=== PATIENT | female | born 1945 | race Caucasian/White ===

== ENCOUNTER → 2016-10-09 | Outpatient (CLI) | payer OTHER | LOC: BRMIMAGING 10:40 | DX: Z12.31 Encounter for screening mammogram for malignant neoplasm of breast (principal); Z80.3 Family history of malignant neoplasm of breast | CPT/HCPCS: G0202 ==

== ENCOUNTER → 2016-11-25 | Outpatient (CLI) | payer OTHER | LOC: BRMIMAGING 13:35 | PROVIDERS: ATTEND Family Medicine | DX: R10.11 Right upper quadrant pain (principal); Z90.49 Acquired absence of other specified parts of digestive tract | CPT/HCPCS: 76700-PO ==

== ENCOUNTER 2017-03-19 15:04 | Emergency (ER) | payer OTHER ==
[2017-03-19 15:21] VITALS: RESP 20
[2017-03-19] MEDS ORDERED: KETOROLAC 30 MG/1 ML SDV ONE (15:34)
[2017-03-19] MEDS ORDERED: KETOROLAC 30 MG/1 ML SDV IM ONE (15:35)
--- NOTE | 2017-03-19 15:35 | EDPHY ---
H & P Time Seen by Provider: 03/19/17 15:10 HPI/ROS: HPI Fall, left ankle pain, tailbone pain. 69-year-old female by private vehicle with her . This patient reports that she was working in her [employer] garden 1 week ago. She was moving some rocks when she lost her balance and fell and landed on her coccyx area. She reports that for the last week the pain has been persistent to her coccyx and sacral area as well as her left ankle. She did not hit her head. No neck pain. There was no loss of consciousness. No other complaints. ROS: Constitutional: No fever, no chills. No weakness. Eyes: No discharge. No changes in vision. ENT: No sore throat. No nasal congestion or rhinorrhea. Respiratory: No cough. No shortness of breath. Cardiac: No chest pain, no palpitations. Gastrointestinal: No abdominal pain, no vomiting, no diarrhea. Genitourinary: No hematuria. No dysuria or increased frequency with urination. Musculoskeletal: As above. No neck pain. Left ankle pain. No other extremity pain. Skin: No rashes. Bruise to left hip. Neurological: No headache. No focal weakness or altered sensation. Past medical history: Parkinson's, hysterectomy, cholecystectomy, right shoulder surgery. Social history: Here with her . Nonsmoker. No alcohol. Physical Exam: General Appearance: Alert, no distress. This patient is responding to questions appropriately and in full sentences. This patient appears well- hydrated and well-nourished. Head: Normocephalic atraumatic. Face: Facial bones are stable on palpation. Eyes: Pupils equal and round and reactive to light, no pallor or injection. No lid erythema or edema. ENT, Mouth: Mucous membranes moist. Dentition is intact. No malocclusion of the jaw. No tongue lacerations or abrasions. Pharynx is clear. The bilateral nasal canals are clear. No septal hematoma. Respiratory: There are no retractions, lungs are clear to auscultation with good air movement bilaterally. Chest wall is stable to AP and lateral palpation. Cardiovascular: Regular rate and rhythm. No murmur. Gastrointestinal: Abdomen is soft and nontender, no masses, bowel sounds normal. Neurological: Motor sensory function is intact. Cranial nerves are normal. Cerebellar function intact. Skin: Warm and dry, no rashes. No lacerations, abrasions. She does have a contusion over the greater trochanter of the left hip. This is nontender on palpation. No pain on axial loading of the left hip or ranging of the left hip. Musculoskeletal: Neck is supple and nontender. The trachea is midline. No midline cervical, thoracic, lumbar or sacral tenderness on palpation. No flank tenderness on palpation. She has tenderness on palpation without deformity or crepitus over the coccyx area and the distal left sacral area. No bony deformity noted. No ecchymosis noted. No erythema, warmth, edema or swelling associated. Extremities are symmetrical, full range of motion. All joints in the bilateral upper and bilateral lower extremities range without pain or impingement. No tenderness on palpation of the long bones in the bilateral upper and bilateral lower extremities. Psychiatric: No agitation. No depression. Database: EKG: Imaging: Lumbar sacral x-ray series: Negative for acute fracture, subluxation, dislocation. Interpreted by me. Coccyx x-ray series: Negative for acute fracture, subluxation, dislocation. Interpreted by me. Left ankle x-ray series: Negative for acute fracture, subluxation, dislocation. Interpreted by me. Procedures: Emergency department course: Past medical history vital signs reviewed. She has a normal creatinine from January 09 of this year. No contraindications to NSAIDs. She is declining narcotic pain medications. She endorses Toradol. She was given 60 mg of IM Toradol and sent for x-rays. 4:25 p.m., patient re-evaluated. She is much more comfortable after the above Toradol was given. Results of her x-rays were discussed with her and her . She does not have a problem weight-bearing on the left ankle. I discussed CT imaging. Plan for now will be to discharge her to home. I will give her a prescription for 7 Vicodin to be taken at night with stool softeners. She and her have been instructed that her pain is not improving in the next 2-3 days she is to return here for CT imaging of her lumbar sacral spine and coccyx. Return to emergency department precautions were thoroughly reviewed with them. They have a doughnut cushion at home which she will use for her coccyx contusion. All of their questions were answered. The patient was discharged in good condition. Differential Diagnosis: The differential diagnosis on this patient includes but is not limited to left ankle sprain, left hip contusion, coccyx fracture. This represents a partial list of diagnoses considered. These considerations are based on history, physical exam, past history, reassessment and diagnostic testing. Smoking Status: Never smoked Constitutional: Initial Vital Signs Temperature (C) 37.1 C 03/19/17 15:17 Heart Rate 96 03/19/17 15:17 Respiratory Rate 20 03/19/17 15:17 Blood Pressure 123/77 H 03/19/17 15:17 O2 Sat (%) 95 03/19/17 15:17 O2 Delivery Mode Room Air Allergies/Adverse Reactions: metronidazole [From Flagyl] Allergy (Severe, Verified 03/19/17 15:16) Anaphylaxis Metronidazole HCl [From Flagyl] Allergy (Severe, Verified 03/19/17 15:16) Anaphylaxis cephalexin monohydrate [From Keflex] Allergy (Mild, Verified 03/19/17 15:16) Rash Home Medications: Medication Instructions Recorded Esomeprazole Magnesium [Nexium] 40 mg PO 01/16/13 LEVOTHYROXINE SODIUM [Tirosint 25 mcg PO 01/16/13 25mcg] Lovastatin 20 mg PO 01/16/13 Carbidopa-Levodopa 25-100 Tab 03/21/14 Hydrochlorothiazide 04/11/15 Pramipexole ER 04/11/15 Docusate Sodium [Colace 100 MG (*)] 100 mg PO TID #20 cap 03/19/17 Hydrocodone/APAP 5/325 [[place] 1 - 2 tab PO Q4-6PRN PRN #10 tab 03/19/17 5/325 (*)] Medical Decision Making - Diagnostics Imaging Results: Imaging Impressions Ankle X-Ray 03/19/17 15:29 Impression: No source for pain identified. 2. Lumbar Spine, 2 views History: Fall 1 week ago, increasing pain Comparison: None Findings: There is a moderate lumbar levoscoliosis. Right upper quadrant surgical clips are consistent with previous cholecystectomy. No compression abnormalities are identified. There is degenerative disk disease between T12 and L2 with mild degenerative retrolistheses present at both those levels. Fecal material throughout the colon is consistent with severe constipation. Impression: 1. Scoliosis of unknown chronicity. This could possibly be secondary to muscle spasm. 2. No fracture. 3. Severe constipation. 3. Sacrum And Coccyx, 3 views History: Pain post fall x1 week Findings: The SI joints are symmetric and normal. No sacral or coccygeal fracture is identified. Alignment is anatomic. Impression: No fracture identified. Lumbar Spine X-Ray 03/19/17 15:29 Impression: No source for pain identified. 2. Lumbar Spine, 2 views History: Fall 1 week ago, increasing pain Comparison: None Findings: There is a moderate lumbar levoscoliosis. Right upper quadrant surgical clips are consistent with previous cholecystectomy. No compression abnormalities are identified. There is degenerative disk disease between T12 and L2 with mild degenerative retrolistheses present at both those levels. Fecal material throughout the colon is consistent with severe constipation. Impression: 1. Scoliosis of unknown chronicity. This could possibly be secondary to muscle spasm. 2. No fracture. 3. Severe constipation. 3. Sacrum And Coccyx, 3 views History: Pain post fall x1 week Findings: The SI joints are symmetric and normal. No sacral or coccygeal fracture is identified. Alignment is anatomic. Impression: No fracture identified. Sacrum and Coccyx X-Ray 03/19/17 15:29 Impression: No source for pain identified. 2. Lumbar Spine, 2 views History: Fall 1 week ago, increasing pain Comparison: None Findings: There is a moderate lumbar levoscoliosis. Right upper quadrant surgical clips are consistent with previous cholecystectomy. No compression abnormalities are identified. There is degenerative disk disease between T12 and L2 with mild degenerative retrolistheses present at both those levels. Fecal material throughout the colon is consistent with severe constipation. Impression: 1. Scoliosis of unknown chronicity. This could possibly be secondary to muscle spasm. 2. No fracture. 3. Severe constipation. 3. Sacrum And Coccyx, 3 views History: Pain post fall x1 week Findings: The SI joints are symmetric and normal. No sacral or coccygeal fracture is identified. Alignment is anatomic. Impression: No fracture identified. - Data Points Medications Given: Discontinued Medications Ketorolac Tromethamine (Toradol) 60 mg IM EDNOW ONE Stop: 03/19/17 15:36 Last Admin: 03/19/17 15:40 Dose: 60 mg Departure - Departure Disposition: Home, Routine, Self-Care Clinical Impression: Left ankle sprain, Contusion of coccyx Condition: Good Instructions: Coccyx Injury (ED), Ankle Sprain (ED) Additional Instructions: Read and follow provided instructions. Follow-up with your primary care physician in 2-3 days for re-evaluation as needed. As discussed, if you are still in significant discomfort in 3 days, return to the emergency department for CT imaging. [place]/Percocet dosin-2 every 4-6 hours for pain. Do not drive on this medication. Ibuprofen dosin mg every 6 hours with meals for the next 2 days only. As discussed, do not take this medication until tomorrow morning. Return to the emergency department for worsening pain, fever, bowel or bladder incontinence, loss of sensation or weakness in your legs, swelling or other serious concerns. Referrals: Yomaira Lovett MD [Primary Care Provider] - As per Instructions Prescriptions: Docusate Sodium [Colace 100 MG (*)] 100 mg PO TID #20 cap Hydrocodone/APAP 5/325 [[place] 5/325 (*)] 1 - 2 tab PO Q4-6PRN PRN #10 tab PRN Reason: Pain, Moderate
[2017-03-19 16:43] VITALS: BP 127/68; PULSE 88; TEMP 98.6; O2SAT 96
== END 2017-03-19 16:46 | disposition home or self-care (01) ==
LOC: CED 15:04
DX: S30.0XXA Contusion of lower back and pelvis, initial encounter (principal); S93.402A Sprain of unspecified ligament of left ankle, initial encounter; G20 Parkinson's disease; W19.XXXA Unspecified fall, initial encounter; Y92.69 Other specified industrial and construction area as the place of occurrence of the external cause; Y99.0 Civilian activity done for income or pay; Y93.89 Activity, other specified
CPT/HCPCS: 72100; 72220; 73610; 96372; 99284; J1885

== ENCOUNTER 2017-06-09 12:08 | Emergency (ER) | payer OTHER ==
[2017-06-09 12:23] VITALS: BP 121/55; PULSE 99; RESP 18; TEMP 98.1; O2SAT 95
--- NOTE | 2017-06-09 12:30 | EDPHY ---
H & P HPI/ROS: CHIEF COMPLAINT: Right foot pain History by patient HISTORY OF PRESENT ILLNESS: 72 old woman presents complaining of right foot pain which has been going on for over 2 weeks but getting significantly worse over the past 1 week. Pain is worse when she tries to bear weight. There has been no direct trauma. She localizes it to the midshaft and base of her 5th metatarsal. She says she has a history of hairline fractures in her feet in the past. She has a history of osteoporosis for which she is currently not getting a treatment. REVIEW OF SYSTEMS: As in HPI, and all other systems reviewed and are negative Smoking Status: Never smoked Physical Exam: General Appearance: Alert and no distress. Eyes: Pupils equal and round no injection. Musculoskeletal: Neck is supple and nontender. Extremities: Right foot with minimal swelling and scant erythema over 5th metatarsal with tenderness to palpation. Full range of motion of all toes and ankle. DP pulse 2 +and equal to the left. Distal sensation intact. Skin: No rashes or lesions except as described above. Constitutional: Initial Vital Signs Temperature (C) 36.7 C 06/09/17 12:21 Heart Rate 99 06/09/17 12:21 Respiratory Rate 18 06/09/17 12:21 Blood Pressure 121/55 H 06/09/17 12:21 O2 Sat (%) 95 06/09/17 12:21 O2 Delivery Mode Room Air Allergies/Adverse Reactions: metronidazole [From Flagyl] Allergy (Severe, Verified 06/09/17 12:17) Anaphylaxis Metronidazole HCl [From Flagyl] Allergy (Severe, Verified 06/09/17 12:17) Anaphylaxis cephalexin monohydrate [From Keflex] Allergy (Mild, Verified 06/09/17 12:17) Rash Home Medications: Medication Instructions Recorded Esomeprazole Magnesium [Nexium] 40 mg PO 01/16/13 LEVOTHYROXINE SODIUM [Tirosint 25 mcg PO 01/16/13 25mcg] Lovastatin 20 mg PO 01/16/13 Carbidopa-Levodopa 25-100 Tab 03/21/14 Hydrochlorothiazide 04/11/15 Pramipexole ER 04/11/15 Docusate Sodium [Colace 100 MG (*)] 100 mg PO TID #20 cap 03/19/17 Hydrocodone/APAP 5/325 [[place] 1 - 2 tab PO Q4-6PRN PRN #10 tab 03/19/17 5/325 (*)] MDM/Departure - MDM Imaging Results: Imaging Impressions Foot X-Ray 06/09/17 12:17 Impression: Nothing acute identified. Imaging: I viewed and interpreted images myself ED Course/Re-evaluation: 71-year-old woman presents with ongoing right foot pain without history of trauma. X-ray showed no evidence of fracture on my review and then the radiologist read also as negative. At this point I suspect may be a tendinitis and will treat the patient symptomatically with a hard-soled postop shoe and NSAIDs. I recommend follow up with primary care physician in 10-14 days if her symptoms persist. - Depart Disposition: Home, Routine, Self-Care Clinical Impression: Foot pain, right Condition: Good Instructions: Arthralgia (ED) Additional Instructions: You were seen by Dr. Shruthi Ovalles today. Where the hard-soled shoe for comfort and support. Try meloxicam for pain. Please follow up with your primary care physician for re-evaluation in 10-14 days if her symptoms persist. Return for any worsening or new concerns. Referrals: Yomaira Lovett MD [Primary Care Provider] - As per Instructions
== END 2017-06-09 13:11 | disposition home or self-care (01) ==
LOC: CED 12:08
DX: M79.671 Pain in right foot (principal)
CPT/HCPCS: 73630; 99283; L3260

== ENCOUNTER → 2017-06-16 | Outpatient (CLI) | payer OTHER | LOC: CIMAGING 11:00 | PROVIDERS: ATTEND Family Medicine | DX: M84.374A Stress fracture, right foot, initial encounter for fracture (principal) | CPT/HCPCS: 73630-PO ==

== ENCOUNTER → 2017-07-29 | Outpatient (CLI) | payer OTHER | LOC: CIMAGING 12:00 | PROVIDERS: ATTEND Family Medicine | DX: M84.374D Stress fracture, right foot, subsequent encounter for fracture with routine healing (principal) | CPT/HCPCS: 73630-PO ==

== ENCOUNTER 2017-08-03 09:34 | Emergency (ER) | payer OTHER ==
[2017-08-03 10:00] VITALS: RESP 18; TEMP 98
[2017-08-03] MEDS ORDERED: LET GEL TOPICAL 1 EA SYR TP ONE (10:11)
--- NOTE | 2017-08-03 10:15 | EDPHY ---
H & P Time Seen by Provider: 08/03/17 10:03 HPI/ROS: This patient had mechanical fall home explaining that her tennis shoe "stuck to the floor" causing her to fall and strike her left face against a doorjamb. She reports localized pain of moderate intensity at the site of the laceration and left zygoma. The laceration is just above her left eyebrow. The incident occurred 45 min prior to my evaluation she was brought here by her by private vehicle for evaluation. She denies any LOC. She denies feeling dazed. She reports moderate bleeding from the laceration that slowed with direct pressure. ROS: Constitutional: She felt well prior to the fall. No complaints. HEENT: No dental injury. No vision changes since the fall. No tinnitus or ear related complaints. She does have the pain at the left cheek bone. No diplopia. Pulmonary: No chest wall pain or shortness of breath Musculoskeletal: No midline neck pain. She has chronic back pain thoracic and lumbar that is unchanged. No new midline pain. Cardiovascular: No complaints GI: No nausea vomiting or belly pain Integumentary: No lacerations other than the forehead laceration from the fall. 7 point ROS is otherwise negative. Past Medical/Surgical History: Parkinson's disease. Smoking Status: Never smoked Physical Exam: Physical exam: Vital signs are normal General: Patient is in no acute distress. HEENT: There is a 2.5 cm laceration just superior to the left eyebrow-full- thickness through skin with subcutaneous tissue evident but no underlying muscle injury, or foreign bodies. Mild bleeding is present. She also has ecchymosis and swelling left zygoma-mild. She has tenderness to palpation that is moderate to severe without location. Nose atraumatic. Ears: Clear bilaterally with no hemotympanum. Oropharynx: No dental trauma or malocclusion. No intraoral lacerations. Eyes: Pupils are equal and reactive to light. Extraocular motions are intact. Optic fundi: Clear with no papilledema or hemorrhage. Neck: Trachea is midline with no stridor. The patient has no midline neck tenderness and retains a full range of motion without increase in pain. Lungs: Clear to auscultation bilaterally Cardiac: Regular rate and rhythm no murmur gallop or rub. Chest: Nontender. Abdomen: Soft nontender no organomegaly Back: Nontender Extremities: Atraumatic Neuro: GCS of 15. Cranial nerves II through XII intact. Cerebellar exam is normal as judged by symmetric rapid hand movements bilaterally. No pronator drift. No sensory or motor deficits are appreciated. Initial differential diagnosis: Minor head injury, facial laceration, facial contusion, zygoma fracture, doubt mild concussion Constitutional: Initial Vital Signs Temperature (C) 36.6 C 08/03/17 09:49 Heart Rate 85 08/03/17 09:49 Respiratory Rate 18 08/03/17 09:49 Blood Pressure 167/101 H 08/03/17 09:49 O2 Sat (%) 91 L 08/03/17 09:49 O2 Delivery Mode Room Air Allergies/Adverse Reactions: metronidazole [From Flagyl] Allergy (Severe, Verified 06/09/17 12:17) Anaphylaxis Metronidazole HCl [From Flagyl] Allergy (Severe, Verified 06/09/17 12:17) Anaphylaxis cephalexin monohydrate [From Keflex] Allergy (Mild, Verified 06/09/17 12:17) Rash Home Medications: Medication Instructions Recorded Esomeprazole Magnesium [Nexium] 40 mg PO 01/16/13 LEVOTHYROXINE SODIUM [Tirosint 25 mcg PO 01/16/13 25mcg] Lovastatin 20 mg PO 01/16/13 Carbidopa-Levodopa 25-100 Tab 03/21/14 Hydrochlorothiazide 04/11/15 Pramipexole ER 04/11/15 Docusate Sodium [Colace 100 MG (*)] 100 mg PO TID #20 cap 03/19/17 Hydrocodone/APAP 5/325 [[place] 1 - 2 tab PO Q4-6PRN PRN #10 tab 03/19/17 5/325 (*)] Meloxicam 7.5 mg PO DAILY #10 tablet 06/09/17 MDM/Departure - MDM Diagnostics: Facial bone x-rays: Negative for zygoma fracture by my interpretation Imaging Results: Imaging Impressions Facial Bones X-Ray 08/03/17 10:12 Impression: Facial bones negative for fracture. Imaging: I viewed and interpreted images myself Procedures: The wound is 2.5 cm, full-thickness. The wound was copiously irrigated with saline. The wound was explored for foreign bodies and none were found. The wound was prepped and draped in the normal sterile fashion. The wound was anesthetized using let solution followed by 50 50 mix of 0.5% Marcaine and 1% lidocaine, 27 gauge needle -2 mL with good effect.. The edges were reapproximated using 5 0 Prolene on a P3 needle -11 running sutures and 1 interrupted suture with good hemostasis and cosmesis. The patient tolerated the procedure well. There were no complications. Medications Given: Discontinued Medications Tetracaine/Epinephrine/Lidocaine (Let Gel Topical) 1 ea TP EDNOW ONE Stop: 08/03/17 10:12 Last Admin: 08/03/17 10:21 Dose: 1 ea ED Course/Re-evaluation: Patient took Tylenol prior to arrival here. She declined any other analgesics while here. Discussion: Patient with laceration and facial contusion, minor head injury. With no change in consciousness and no generalized headache, I do not think this patient had a concussion, cerebral contusion more significant head injury. Her mental status has remained normal throughout her stay here. I ruled out facial fracture with normal facial film x-rays. Counseled patient regarding her facial laceration after suturing it. - Depart Disposition: Home, Routine, Self-Care Clinical Impression: Forehead laceration Qualifiers: Encounter type: initial encounter Qualified Code(s): S01.81XA - Laceration without foreign body of other part of head, initial encounter Contusion of face Qualifiers: Encounter type: initial encounter Qualified Code(s): S00.83XA - Contusion of other part of head, initial encounter Condition: Good Instructions: Care For Your Stitches (ED), Head Injury (ED) Additional Instructions: Diagnosis: Facial laceration 2. Facial contusion 3. Minor head injury Plan: Continue Tylenol for pains as needed. Ibuprofen in addition if needed Ice 20 min at a time to the cheek for the next few days 3 times a day to decrease swelling & black and blue discoloration Keep the wound clean and dry for the next 2 days, then clean with warm soapy water daily. Return for suture removal in 5-7 days. Return sooner if you develops unbearable headache, confusion, vomiting more than once or other concerns. Referrals: Yomaira Lovett MD [Primary Care Provider] - As per Instructions
[2017-08-03 10:50] VITALS: PULSE 78
[2017-08-03 12:07] VITALS: BP 135/62; O2SAT 97
== END 2017-08-03 11:56 | disposition home or self-care (01) ==
LOC: CED 09:34
PROC: 0HQ1XZZ Repair Face Skin, External Approach (ICD-10-PCS; principal; 2017-08-03)
DX: S01.81XA Laceration without foreign body of other part of head, initial encounter (principal); W01.198A Fall on same level from slipping, tripping and stumbling with subsequent striking against other object, initial encounter; Y92.009 Unspecified place in unspecified non-institutional (private) residence as the place of occurrence of the external cause
CPT/HCPCS: 70150-PO

== ENCOUNTER → 2017-09-03 | Outpatient (CLI) | payer OTHER | LOC: BRMIMAGING 08:33 | PROVIDERS: ATTEND Family Medicine | DX: Z13.820 Encounter for screening for osteoporosis (principal); M81.0 Age-related osteoporosis without current pathological fracture ==

== ENCOUNTER → 2017-10-26 | Outpatient (CLI) | payer OTHER | LOC: BRMIMAGING 13:11 | PROVIDERS: ATTEND Family Medicine | DX: Z12.31 Encounter for screening mammogram for malignant neoplasm of breast (principal); Z80.3 Family history of malignant neoplasm of breast ==

== ENCOUNTER → 2018-04-08 | Outpatient (CLI) | payer OTHER | LOC: CIMAGING 11:06 | PROVIDERS: ATTEND Family Medicine | DX: J98.4 Other disorders of lung (principal) | CPT/HCPCS: 71046-PO ==

== ENCOUNTER → 2018-04-09 | Outpatient (CLI) | payer OTHER | LOC: CIMAGING 13:53 | PROVIDERS: ATTEND Family Medicine | DX: R07.81 Pleurodynia (principal) | CPT/HCPCS: 71100-PO ==